=== PATIENT | male | born 1980 | race Caucasian/White ===

== ENCOUNTER 2019-07-24 16:30 | Emergency (ER) | payer SELFPAY ==
[~2019-07-24] VITALS: Ht 182.9 cm; Wt 87.1 kg
[2019-07-24 16:34] VITALS: BP 129/88
[2019-07-24] MEDS ORDERED: LIDOCAINE-MPF 1%, 5ML ONE (17:27)
[2019-07-24] MEDS ORDERED: LIDOCAINE-MPF 1%, 5ML INFIL ONE (17:30)
[2019-07-24] MEDS ORDERED: PLEASE ENTER ALLERGIES MC SCH (17:30)
[2019-07-24] MEDS ORDERED: NEOSPORIN OINT. PKT 1 PACKET ONE (18:17)
== END 2019-07-24 18:44 | disposition home or self-care (01) ==
LOC: ED 18:00
DX: S61.211A Laceration without foreign body of left index finger without damage to nail, initial encounter (principal); G89.11 Acute pain due to trauma; W27.8XXA Contact with other nonpowered hand tool, initial encounter; Y93.89 Activity, other specified; Y92.098 Other place in other non-institutional residence as the place of occurrence of the external cause; Y99.8 Other external cause status
CPT/HCPCS: 12041; 99284